=== PATIENT | female | born 1960 | race African-American/Black ===

== ENCOUNTER 2020-06-19 04:52 | Emergency (ER) | payer SELFPAY ==
[~2020-06-19] VITALS: Ht 160 cm; Wt 68.2 kg
[2020-06-19 04:56] VITALS: Ht 160 cm; Wt 68.2 kg
[2020-06-19] MEDS ORDERED: HYDROCODON-ACE1 EA10 PO (05:39)
[2020-06-19] MEDS ORDERED: CLEOCIN HCL300 MG PO (05:39)
[2020-06-19 05:45] VITALS: BP 136/89
== END 2020-06-19 05:45 | disposition home or self-care (01) ==
LOC: D.ER 04:52
DX: M79.645 Pain in left finger(s) (principal); L03.012 Cellulitis of left finger